=== PATIENT | male | born 1950 | race Caucasian/White ===

== ENCOUNTER → 2020-11-17 | Outpatient (CLI) | payer MEDICARE, OTHER | END | disposition home or self-care (01) | LOC: US 14:23 | PROVIDERS: ATTEND Family Medicine | DX: I70.8 Atherosclerosis of other arteries (principal); R59.0 Localized enlarged lymph nodes ==

== ENCOUNTER → 2024-01-19 | Outpatient (CLI) | payer MEDICARE, OTHER | END | disposition home or self-care (01) | LOC: WOUNDCARE 10:47 | PROVIDERS: ATTEND Nurse Practitioner Family | DX: L03.116 Cellulitis of left lower limb (principal); I83.028 Varicose veins of left lower extremity with ulcer other part of lower leg; E11.622 Type 2 diabetes mellitus with other skin ulcer; L97.822 Non-pressure chronic ulcer of other part of left lower leg with fat layer exposed; I83.891 Varicose veins of right lower extremity with other complications; I87.8 Other specified disorders of veins; J44.9 Chronic obstructive pulmonary disease, unspecified; I10 Essential (primary) hypertension; F17.210 Nicotine dependence, cigarettes, uncomplicated; Z79.02 Long term (current) use of antithrombotics/antiplatelets; Z79.899 Other long term (current) drug therapy ==

== ENCOUNTER → 2024-01-26 | Outpatient (CLI) | payer MEDICARE, OTHER | END | disposition home or self-care (01) | LOC: WOUNDCARE 02:36 | PROVIDERS: ATTEND Nurse Practitioner Family | DX: L03.116 Cellulitis of left lower limb (principal); E11.622 Type 2 diabetes mellitus with other skin ulcer; I83.018 Varicose veins of right lower extremity with ulcer other part of lower leg; L97.812 Non-pressure chronic ulcer of other part of right lower leg with fat layer exposed; I83.028 Varicose veins of left lower extremity with ulcer other part of lower leg; L97.822 Non-pressure chronic ulcer of other part of left lower leg with fat layer exposed; I87.8 Other specified disorders of veins; J44.9 Chronic obstructive pulmonary disease, unspecified; I10 Essential (primary) hypertension; F17.210 Nicotine dependence, cigarettes, uncomplicated; Z79.02 Long term (current) use of antithrombotics/antiplatelets; Z79.899 Other long term (current) drug therapy ==

== ENCOUNTER → 2024-02-02 | Outpatient (CLI) | payer MEDICARE, OTHER | END | disposition home or self-care (01) | LOC: WOUNDCARE 00:49 | PROVIDERS: ATTEND Nurse Practitioner Family | DX: L03.116 Cellulitis of left lower limb (principal); E11.622 Type 2 diabetes mellitus with other skin ulcer; I83.018 Varicose veins of right lower extremity with ulcer other part of lower leg; L97.812 Non-pressure chronic ulcer of other part of right lower leg with fat layer exposed; I83.028 Varicose veins of left lower extremity with ulcer other part of lower leg; L97.822 Non-pressure chronic ulcer of other part of left lower leg with fat layer exposed; I87.8 Other specified disorders of veins; J44.9 Chronic obstructive pulmonary disease, unspecified; I10 Essential (primary) hypertension; F17.210 Nicotine dependence, cigarettes, uncomplicated; Z79.02 Long term (current) use of antithrombotics/antiplatelets; Z79.899 Other long term (current) drug therapy ==

== ENCOUNTER → 2024-02-09 | Outpatient (CLI) | payer MEDICARE, OTHER | END | disposition home or self-care (01) | LOC: WOUNDCARE 00:50 | PROVIDERS: ATTEND Nurse Practitioner Family | DX: E11.622 Type 2 diabetes mellitus with other skin ulcer (principal); I83.018 Varicose veins of right lower extremity with ulcer other part of lower leg; L97.812 Non-pressure chronic ulcer of other part of right lower leg with fat layer exposed; I83.028 Varicose veins of left lower extremity with ulcer other part of lower leg; L97.822 Non-pressure chronic ulcer of other part of left lower leg with fat layer exposed; J44.9 Chronic obstructive pulmonary disease, unspecified; I10 Essential (primary) hypertension; L03.116 Cellulitis of left lower limb; F17.290 Nicotine dependence, other tobacco product, uncomplicated ==

== ENCOUNTER → 2024-02-17 | Outpatient (CLI) | payer MEDICARE, OTHER | END | disposition home or self-care (01) | LOC: WOUNDCARE 01:26 | PROVIDERS: ATTEND Nurse Practitioner Family | DX: E11.622 Type 2 diabetes mellitus with other skin ulcer (principal); I83.018 Varicose veins of right lower extremity with ulcer other part of lower leg; L97.812 Non-pressure chronic ulcer of other part of right lower leg with fat layer exposed; I83.892 Varicose veins of left lower extremity with other complications; L03.116 Cellulitis of left lower limb; I10 Essential (primary) hypertension; J44.9 Chronic obstructive pulmonary disease, unspecified; F17.290 Nicotine dependence, other tobacco product, uncomplicated ==

== ENCOUNTER → 2024-02-24 | Outpatient (CLI) | payer MEDICARE, OTHER | END | disposition home or self-care (01) | LOC: WOUNDCARE 01:47 | PROVIDERS: ATTEND Nurse Practitioner Family | DX: E11.622 Type 2 diabetes mellitus with other skin ulcer (principal); I83.018 Varicose veins of right lower extremity with ulcer other part of lower leg; L97.812 Non-pressure chronic ulcer of other part of right lower leg with fat layer exposed; I83.028 Varicose veins of left lower extremity with ulcer other part of lower leg; L97.822 Non-pressure chronic ulcer of other part of left lower leg with fat layer exposed; L03.116 Cellulitis of left lower limb; I87.8 Other specified disorders of veins; J44.9 Chronic obstructive pulmonary disease, unspecified; I10 Essential (primary) hypertension; F17.210 Nicotine dependence, cigarettes, uncomplicated; Z79.02 Long term (current) use of antithrombotics/antiplatelets; Z79.899 Other long term (current) drug therapy ==

== ENCOUNTER → 2024-05-24 | Outpatient (CLI) | payer MEDICARE, OTHER | END | disposition home or self-care (01) | LOC: CARD 05-06 12:00 | PROVIDERS: ATTEND Internal Medicine Cardiovascular Disease | DX: I08.1 Rheumatic disorders of both mitral and tricuspid valves (principal); R06.02 Shortness of breath ==

== ENCOUNTER 2024-06-30 20:21 | Inpatient (IN) | payer MEDICARE, OTHER ==
[~2024-06-30] VITALS: Ht 190.5 cm; Wt 89.4 kg
[2024-06-30 20:26] VITALS: BP 90/43
[2024-06-30 20:59] LABS: HEMATOCRIT 49.8 % (42.0-52.0); MEAN CELL VOLUME 103.3 fl (80.0-94.0); MEAN CORPUSCULAR HGB 33.4 pg (27.0-31.0); MEAN CORPUSCULAR HGB CONC 32.3 g/dl (33.0-37.0); MEAN PLATELET VOLUME 10.6 fl (9.6-12.3); PLATELET COUNT AUTOMATED 156 10*3/uL (130-400); RED BLOOD COUNT 4.82 10*6/uL (4.50-5.90); RED CELL DISTRI WIDTH 12.8 % (0-14.5); WHITE BLOOD COUNT 12.9 10*3/uL (4.8-10.8)
[2024-06-30 21:01] LABS: MANUAL DIFF REFLEX YES
[2024-06-30] MEDS ORDERED: JARDIANCE25 MG PO (21:05)
[2024-06-30] MEDS ORDERED: FUROSEMIDE40 MG PO (21:05)
[2024-06-30] MEDS ORDERED: FINASTERIDE5 M1 PO (21:05)
[2024-06-30] MEDS ORDERED: INCRUSE ELLI62.5 MCG INH (21:07)
[2024-06-30] MEDS ORDERED: LISINOPRIL10 M1 PO (21:08)
[2024-06-30] MEDS ORDERED: PIOGLITAZONE HC30 MG PO (21:08)
[2024-06-30] MEDS ORDERED: GLIPIZIDE10 M2 PO (21:10)
[2024-06-30] MEDS ORDERED: JANUMET 50-1,01 EACH PO (21:10)
[2024-06-30] MEDS ORDERED: Ceftriaxone Sodium 1 GM/10 ML SYR IV ONE (21:15)
[2024-06-30] MEDS ORDERED: Dexamethasone Sodium Phospha 4 MG/ML VIAL IV ONE (21:15)
[2024-06-30] MEDS ORDERED: AZITHROMYCIN 250 ML IV ONE (21:15)
[2024-06-30] MEDS ORDERED: SODIUM CHLORIDE 0.9% 1,000 ML IV SCH (21:20)
[2024-06-30 21:30] LABS: PLATELET SUFFICIENCY NORMAL (NORMAL); TOTAL CELLS COUNTED 100 #CELLS
[2024-06-30 21:31] LABS: BURR CELLS FEW; OVALOCYTES FEW
[2024-06-30 21:40] LABS: POTASSIUM 4.5 mmol/L (3.4-5.1)
[2024-06-30 21:41] LABS: TOTAL PROTEIN 7.1 gm/dL (6.0-8.0)
[2024-06-30 22:45] VITALS: BP 78/41
[2024-07-01] VITALS (70 sets, daily range): BP systolic 74–121; BP diastolic 38–78
[2024-07-01] MEDS ORDERED: Albuterol Sulf/Ipratropium 3 ML VIAL NEB SCH (00:55)
[2024-07-01] MEDS ORDERED: DEXTROSE 10 % IN WATER 250 ML IV PRN (01:05)
[2024-07-01 04:25] LABS: POTASSIUM 4.3 mmol/L (3.4-5.1); TOTAL PROTEIN 6.4 gm/dL (6.0-8.0)
[2024-07-01] MEDS ORDERED: SODIUM CHLORIDE 0.9% 1,000 ML IV ONE (04:30)
[2024-07-01 04:49] LABS: HEMATOCRIT 43.3 % (42.0-52.0); MEAN CELL VOLUME 100.5 fl (80.0-94.0); MEAN CORPUSCULAR HGB 32.9 pg (27.0-31.0); MEAN CORPUSCULAR HGB CONC 32.8 g/dl (33.0-37.0); MEAN PLATELET VOLUME 10.9 fl (9.6-12.3); PLATELET COUNT AUTOMATED 129 10*3/uL (130-400); RED BLOOD COUNT 4.31 10*6/uL (4.50-5.90); RED CELL DISTRI WIDTH 12.8 % (0-14.5); WHITE BLOOD COUNT 4.7 10*3/uL (4.8-10.8)
[2024-07-01 04:50] LABS: MANUAL DIFF REFLEX YES
[2024-07-01 05:01] LABS: ABG BASE EXCESS -3.9 mmol/L (-2.0-3.0); ABG O2 SATURATION 94.7 % (94.0-98.0); ARTERIAL BLOOD GAS PH 7.295 (7.350-7.450); ARTERIAL BLOOD GAS PO2 87.8 mmHg (83.0-108.0)
[2024-07-01 05:08] LABS: TOTAL CELLS COUNTED 100 #CELLS
[2024-07-01 05:09] LABS: PLATELET SUFFICIENCY LOW (NORMAL)
[2024-07-01] MEDS ORDERED: Pantoprazole Sodium 40 MG VIAL IV SCH (06:00)
[2024-07-01] MEDS ORDERED: NOREPINEPHRINE BITARTRATE/D5W 250 ML IV SCH (06:20)
[2024-07-01] MEDS ORDERED: Vancomycin Hydrochloride 2,000 MG in SODIUM CHLORIDE 0.9% 500 ML IV ONE (06:30)
[2024-07-01] MEDS ORDERED: NOREPINEPHRINE BITARTRATE/D5W 250 ML IV ONE (06:40)
[2024-07-01] MEDS ORDERED: INSULIN LISPRO 1 UNIT/0.01 ML SQ SCH (07:30)
[2024-07-01] MEDS ORDERED: Piperacillin Sodium/Tazobact 50 ML IV SCH (08:00)
[2024-07-01] MEDS ORDERED: VANCOMYCIN/WATER FOR INJ (PEG) 300 ML IV SCH (09:00)
[2024-07-01] MEDS ORDERED: FINASTERIDE 5 MG TAB PO SCH (10:00)
[2024-07-01] MEDS ORDERED: HEPARIN SODIUM 5,000 UNIT/ML VIAL SC SCH (10:00)
[2024-07-01] MEDS ORDERED: methylPREDNISolone sod succ 40 MG VIAL IV SCH ×2 (10:00→14:00)
[2024-07-01] MEDS ORDERED: ACETAMINOPHEN 325 MG TAB PO PRN (11:20)
[2024-07-01] MEDS ORDERED: ACETAMINOPHEN 650 MG SUPP R PRN (11:20)
[2024-07-01] MEDS ORDERED: SODIUM CHLORIDE 0.9% 1,000 ML IV SCH (12:40)
[2024-07-01] MEDS ORDERED: PLAVIX75 M1 PO (12:57)
[2024-07-01] MEDS ORDERED: Lactated Ringer's Solution 1,000 ML IV ONE (13:25)
[2024-07-01 14:36] LABS: BUN 36 mg/dl (9-23); CHLORIDE 103 mmol/L (98-107); POTASSIUM 4.4 mmol/L (3.4-5.1)
[2024-07-01 17:36] LABS: BILIRUBIN Negative (Negative); BLOOD Negative (Negative); CLARITY Clear (Clear); COLOR Yellow (Yellow); GLUCOSE 3+ (Negative); KETONE Negative (Negative); LEUKO ESTERASE Negative (Negative); NITRITE Negative (Negative); SPECIFIC GRAVITY 1.025 (1.001-1.030); UROBILINOGEN 0.2 E.U./dl (0.0-1.0)
[2024-07-01 17:45] LABS: BACTERIA 2+
[2024-07-01] MEDS ORDERED: AMMONIUM LACTATE 12% LOTION T SCH (22:00)
[2024-07-01] MEDS ORDERED: Ceftriaxone Sodium 1 GM in SYRINGE INFUSION 10 ML IV SCH (22:00)
[2024-07-01] MEDS ORDERED: AZITHROMYCIN 250 ML IV SCH (22:00)
[2024-07-02] VITALS (94 sets, daily range): BP systolic 76–139; BP diastolic 31–73
[2024-07-02 05:12] LABS: BUN 34 mg/dl (9-23); CHLORIDE 105 mmol/L (98-107)
[2024-07-02 06:08] LABS: HEMATOCRIT 41.6 % (42.0-52.0); MEAN CORPUSCULAR HGB 33.5 pg (27.0-31.0); MEAN CORPUSCULAR HGB CONC 33.2 g/dl (33.0-37.0); MEAN PLATELET VOLUME 11.5 fl (9.6-12.3); PLATELET COUNT AUTOMATED 122 10*3/uL (130-400); RED BLOOD COUNT 4.12 10*6/uL (4.50-5.90); RED CELL DISTRI WIDTH 13.1 % (0-14.5); WHITE BLOOD COUNT 19.8 10*3/uL (4.8-10.8)
[2024-07-02 06:11] LABS: MANUAL DIFF REFLEX YES
[2024-07-02 08:00] LABS: TOTAL CELLS COUNTED 100 #CELLS; VACUOLATION OF NEUTROPHILS SLIGHT
[2024-07-02 08:01] LABS: BURR CELLS FEW; DOHLE BODIES FEW; PLATELET SUFFICIENCY LOW (NORMAL)
[2024-07-02] MEDS ORDERED: MUPIROCIN 15 GM TUBE T SCH (10:00)
[2024-07-02] MEDS ORDERED: COREG3.125 MG PO (10:29)
[2024-07-02] MEDS ORDERED: CARVEDILOL 3.125 MG TAB PO SCH ×2 (10:40→22:00)
[2024-07-02] MEDS ORDERED: AZITHROMYCIN 250 ML IV SCH (12:00)
[2024-07-02] MEDS ORDERED: Lactated Ringer's Solution 1,000 ML IV ONE (14:05)
[2024-07-02 14:16] LABS: ABG O2 SATURATION 87.1 % (94.0-98.0); ARTERIAL BLOOD GAS PH 7.256 (7.350-7.450); ARTERIAL BLOOD GAS PO2 55.7 mmHg (83.0-108.0)
[2024-07-02 14:21] LABS: ABG BASE EXCESS -7.2 mmol/L (-2.0-3.0)
[2024-07-02] MEDS ORDERED: SODIUM CHLORIDE 0.9% 1,000 ML IV ONE (14:24)
[2024-07-02] MEDS ORDERED: PROPOFOL 100 ML IV ONE ×2 (15:26→18:51)
[2024-07-02] MEDS ORDERED: DEXMEDETOMIDINE IN 0.9 % NACL 100 ML IV SCH (15:55)
[2024-07-02] MEDS ORDERED: Metoprolol Tartrate 5 MG/5 ML VIAL IV ONE (17:10)
[2024-07-02] MEDS ORDERED: HEPARIN SODIUM 250 ML IV SCH (17:30)
[2024-07-02] MEDS ORDERED: fentaNYL CITRATE 100 MCG/2 ML VIAL IV PRN (17:35)
[2024-07-02] MEDS ORDERED: Chlorhexidine Gluconate 15 ML MOUTHWASH T SCH (18:00)
[2024-07-02 18:15] LABS: ABG O2 SATURATION 75.8 % (94.0-98.0)
[2024-07-02 18:18] LABS: ABG BASE EXCESS -11.2 mmol/L (-2.0-3.0)
[2024-07-02 18:19] LABS: ARTERIAL BLOOD GAS PH 7.067 (7.350-7.450)
[2024-07-02 18:20] LABS: ARTERIAL BLOOD GAS PO2 48.5 mmHg (83.0-108.0)
[2024-07-02] MEDS ORDERED: Amiodarone Hydrochloride 900 MG in DEXTROSE 5% 500 ML IV SCH (18:20)
[2024-07-02] MEDS ORDERED: SODIUM BICARBONATE 50 MEQ IV ONE (18:25)
[2024-07-02] MEDS ORDERED: SODIUM BICARBONATE 50 MEQ/50 ML VIAL IV ONE (18:35)
[2024-07-02] MEDS ORDERED: Amiodarone Hydrochloride 150 MG,IV 1 EA in DEXTROSE 5% 100 ML IV ONE (18:55)
[2024-07-02 21:30] LABS: ABG O2 SATURATION 80.2 % (94.0-98.0)
[2024-07-02 21:31] LABS: ABG BASE EXCESS -6.2 mmol/L (-2.0-3.0)
[2024-07-02 21:34] LABS: ARTERIAL BLOOD GAS PH 7.204 (7.350-7.450)
[2024-07-02 21:35] LABS: ARTERIAL BLOOD GAS PO2 48.3 mmHg (83.0-108.0)
[2024-07-02] MEDS ORDERED: fentaNYL CITRATE 1,000 MCG in SODIUM CHLORIDE 0.9% 230 ML IV SCH (23:45)
[2024-07-02] MEDS ORDERED: VASOPRESSIN 100 ML IV SCH (23:50)
[2024-07-03] VITALS (70 sets, daily range): BP systolic 75–119; BP diastolic 44–65
[2024-07-03] MEDS ORDERED: VASOPRESSIN 100 ML IV ONE (00:09)
[2024-07-03 00:52] LABS: ABG O2 SATURATION 69.4 % (94.0-98.0)
[2024-07-03 00:53] LABS: ABG BASE EXCESS -4.7 mmol/L (-2.0-3.0)
[2024-07-03 00:54] LABS: ARTERIAL BLOOD GAS PH 7.249 (7.350-7.450)
[2024-07-03 00:55] LABS: ARTERIAL BLOOD GAS PO2 37.7 mmHg (83.0-108.0)
[2024-07-03] MEDS ORDERED: FENTANYL CITRATE IV SCH (01:05)
[2024-07-03] MEDS ORDERED: SODIUM CHLORIDE 0.9% IV SCH (01:05)
[2024-07-03] MEDS ORDERED: fentaNYL CITRATE 100 MCG/2 ML VIAL ONE (01:05)
[2024-07-03 01:41] LABS: ABG BASE EXCESS -4.6 mmol/L (-2.0-3.0); ABG O2 SATURATION 97.8 % (94.0-98.0); ARTERIAL BLOOD GAS PH 7.265 (7.350-7.450); ARTERIAL BLOOD GAS PO2 113.9 mmHg (83.0-108.0)
[2024-07-03 04:12] LABS: HEMATOCRIT 38.1 % (42.0-52.0); MEAN CELL VOLUME 101.9 fl (80.0-94.0); MEAN CORPUSCULAR HGB 33.4 pg (27.0-31.0); MEAN CORPUSCULAR HGB CONC 32.8 g/dl (33.0-37.0); MEAN PLATELET VOLUME 11.3 fl (9.6-12.3); PLATELET COUNT AUTOMATED 109 10*3/uL (130-400); RED BLOOD COUNT 3.74 10*6/uL (4.50-5.90); RED CELL DISTRI WIDTH 13.1 % (0-14.5); WHITE BLOOD COUNT 17.8 10*3/uL (4.8-10.8)
[2024-07-03 04:48] LABS: MANUAL DIFF REFLEX YES
[2024-07-03 04:49] LABS: ALKALINE PHOSPHATASE 69 U/L (46-116); BUN 38 mg/dl (9-23); CHLORIDE 101 mmol/L (98-107); PLATELET SUFFICIENCY LOW (NORMAL); POTASSIUM 4.4 mmol/L (3.4-5.1); SGPT/ALT 47 U/L (5-49); TOTAL CELLS COUNTED 100 #CELLS; TOTAL PROTEIN 5.9 gm/dL (6.0-8.0)
[2024-07-03] MEDS ORDERED: Meropenem 1 GM in SODIUM CHLORIDE 0.9% 100 ML IV SCH ×2 (06:00→14:00)
[2024-07-03 07:56] LABS: ABG O2 SATURATION 98.3 % (94.0-98.0); ARTERIAL BLOOD GAS PH 7.325 (7.350-7.450); ARTERIAL BLOOD GAS PO2 117.9 mmHg (83.0-108.0)
[2024-07-03] MEDS ORDERED: SODIUM CHLORIDE 0.9% 100 ML BAG IV ONE ×2 (08:51→13:40)
[2024-07-03] MEDS ORDERED: IOHEXOL 350 MG/ML 100 ML VIAL IV ONE (13:40)
[2024-07-03] MEDS ORDERED: Vancomycin Hydrochloride 1,000 MG in SODIUM CHLORIDE 0.9% 250 ML IV SCH (16:00)
[2024-07-03] MEDS ORDERED: Metoclopramide Hydrochloride 10 MG/2 ML VIAL IV SCH (18:00)
[2024-07-04] VITALS (69 sets, daily range): BP systolic 81–118; BP diastolic 35–59
[2024-07-04 04:39] LABS: ALKALINE PHOSPHATASE 77 U/L (46-116); BUN 35 mg/dl (9-23); CHLORIDE 102 mmol/L (98-107); POTASSIUM 4.3 mmol/L (3.4-5.1); SGPT/ALT 42 U/L (5-49); TOTAL PROTEIN 5.8 gm/dL (6.0-8.0)
[2024-07-04 04:41] LABS: HEMATOCRIT 39.1 % (42.0-52.0); MEAN CELL VOLUME 100.3 fl (80.0-94.0); MEAN CORPUSCULAR HGB 33.3 pg (27.0-31.0); MEAN CORPUSCULAR HGB CONC 33.2 g/dl (33.0-37.0); MEAN PLATELET VOLUME 11.2 fl (9.6-12.3); NUCLEATED RED BLOOD CELL 0.1 % (0.0-0.0); PLATELET COUNT AUTOMATED 91 10*3/uL (130-400); RED CELL DISTRI WIDTH 13.4 % (0-14.5); WHITE BLOOD COUNT 15.5 10*3/uL (4.8-10.8)
[2024-07-04 04:42] LABS: MANUAL DIFF REFLEX YES
[2024-07-04 05:28] LABS: PLATELET SUFFICIENCY LOW (NORMAL); TOTAL CELLS COUNTED 100 #CELLS
[2024-07-04 05:29] LABS: ACANTHOCYTES FEW; BURR CELLS MODERATE
[2024-07-04] MEDS ORDERED: Ketamine Hydrochloride 500 MG/10 ML VIAL IV ONE (08:04)
[2024-07-04] MEDS ORDERED: Succinylcholine Chloride 200 MG/10 ML SYRINGE IV ONE (08:04)
[2024-07-04] MEDS ORDERED: Enoxaparin Sodium 40 MG/0.4 ML SYR SC SCH (10:00)
[2024-07-04] MEDS ORDERED: DEXTROSE 10 % IN WATER 250 ML IV PRN (21:10)
[2024-07-04] MEDS ORDERED: INSULIN LISPRO 1 UNIT/0.01 ML SQ SCH (22:00)
[2024-07-05] VITALS (61 sets, daily range): BP systolic 99–119; BP diastolic 43–62
[2024-07-05 03:45] LABS: HEMATOCRIT 38.7 % (42.0-52.0); MEAN CELL VOLUME 102.1 fl (80.0-94.0); MEAN CORPUSCULAR HGB CONC 32.3 g/dl (33.0-37.0); MEAN PLATELET VOLUME 11.4 fl (9.6-12.3); PLATELET COUNT AUTOMATED 104 10*3/uL (130-400); RED BLOOD COUNT 3.79 10*6/uL (4.50-5.90); RED CELL DISTRI WIDTH 13.3 % (0-14.5); WHITE BLOOD COUNT 8.6 10*3/uL (4.8-10.8)
[2024-07-05 03:46] LABS: MANUAL DIFF REFLEX YES
[2024-07-05 04:02] LABS: BUN 38 mg/dl (9-23); CHLORIDE 104 mmol/L (98-107); POTASSIUM 4.4 mmol/L (3.4-5.1)
[2024-07-05 04:05] LABS: BURR CELLS MODERATE; PLATELET SUFFICIENCY LOW (NORMAL); POLYCHROMASIA SLIGHT; TOTAL CELLS COUNTED 100 #CELLS
[2024-07-05 07:51] LABS: ARTERIAL BLOOD GAS PH 7.34 (7.350-7.450)
[2024-07-05 07:52] LABS: ABG BASE EXCESS -5.2 mmol/L (-2.0-3.0)
[2024-07-05] MEDS ORDERED: methylPREDNISolone sod succ 40 MG VIAL IV SCH (22:00)
[2024-07-06] VITALS (8 sets, daily range): BP systolic 109–118; BP diastolic 48–59
[2024-07-06] MEDS ORDERED: FENTANYL CITRATE IV SCH (05:10)
[2024-07-06] MEDS ORDERED: SODIUM CHLORIDE 0.9% IV SCH (05:10)
[2024-07-06 05:25] LABS: BUN 37 mg/dl (9-23); CHLORIDE 105 mmol/L (98-107); POTASSIUM 5.1 mmol/L (3.4-5.1)
[2024-07-06 06:13] LABS: BASO % 0.2 % (0.0-1.0); HEMATOCRIT 38.5 % (42.0-52.0); MEAN CELL VOLUME 100.5 fl (80.0-94.0); MEAN CORPUSCULAR HGB 32.9 pg (27.0-31.0); MEAN CORPUSCULAR HGB CONC 32.7 g/dl (33.0-37.0); MEAN PLATELET VOLUME 11.5 fl (9.6-12.3); MONO # 0.5 10*3/uL (0.1-1.0); MONO % 8.1 % (3.0-9.0); NEUT # 5.2 10*3/uL (2.3-7.9); NEUT % 85.3 % (47.0-73.0); PLATELET COUNT AUTOMATED 110 10*3/uL (130-400); RED BLOOD COUNT 3.83 10*6/uL (4.50-5.90); RED CELL DISTRI WIDTH 13.2 % (0-14.5); WHITE BLOOD COUNT 6.1 10*3/uL (4.8-10.8)
[2024-07-06 08:05] LABS: ABG BASE EXCESS 1.5 mmol/L (-2.0-3.0); ABG O2 SATURATION 93.4 % (94.0-98.0); ARTERIAL BLOOD GAS PH 7.435 (7.350-7.450)
[2024-07-07] VITALS: BP 115/64
[2024-07-07 04:00] VITALS: BP 117/63
[2024-07-07 05:29] LABS: BUN 30 mg/dl (9-23); CHLORIDE 103 mmol/L (98-107); POTASSIUM 5.6 mmol/L (3.4-5.1)
[2024-07-07 06:50] LABS: HEMATOCRIT 42.5 % (42.0-52.0); MEAN CELL VOLUME 102.7 fl (80.0-94.0); MEAN CORPUSCULAR HGB 32.6 pg (27.0-31.0); MEAN CORPUSCULAR HGB CONC 31.8 g/dl (33.0-37.0); MEAN PLATELET VOLUME 11.9 fl (9.6-12.3); PLATELET COUNT AUTOMATED 137 10*3/uL (130-400); RED BLOOD COUNT 4.14 10*6/uL (4.50-5.90); RED CELL DISTRI WIDTH 13.2 % (0-14.5); WHITE BLOOD COUNT 10.5 10*3/uL (4.8-10.8)
[2024-07-07 06:56] LABS: MANUAL DIFF REFLEX YES
[2024-07-07 07:21] LABS: TOTAL CELLS COUNTED 100 #CELLS
[2024-07-07 07:22] LABS: BURR CELLS FEW; OVALOCYTES FEW; PLATELET SUFFICIENCY NORMAL (NORMAL); POLYCHROMASIA SLIGHT; TOXIC GRANULATION SLIGHT
[2024-07-07 08:00] VITALS: BP 126/64
[2024-07-07 12:00] VITALS: BP 112/61
[2024-07-07 16:00] VITALS: BP 123/66
[2024-07-07] MEDS ORDERED: MED. FROM HOME 1 EACH EA INH SCH (17:00)
[2024-07-07 20:00] VITALS: BP 107/53
[2024-07-08] VITALS: BP 116/59
[2024-07-08 04:00] VITALS: BP 124/63
[2024-07-08 05:08] LABS: BUN 22 mg/dl (9-23); CHLORIDE 101 mmol/L (98-107); POTASSIUM 5.4 mmol/L (3.4-5.1)
[2024-07-08 06:11] LABS: HEMATOCRIT 43.7 % (42.0-52.0); MEAN CELL VOLUME 103.6 fl (80.0-94.0); MEAN CORPUSCULAR HGB 32.9 pg (27.0-31.0); MEAN CORPUSCULAR HGB CONC 31.8 g/dl (33.0-37.0); MEAN PLATELET VOLUME 11.6 fl (9.6-12.3); PLATELET COUNT AUTOMATED 153 10*3/uL (130-400); RED BLOOD COUNT 4.22 10*6/uL (4.50-5.90)
[2024-07-08 06:20] LABS: MANUAL DIFF REFLEX YES
[2024-07-08 07:13] LABS: PLATELET SUFFICIENCY NORMAL (NORMAL); TOTAL CELLS COUNTED 100 #CELLS
[2024-07-08 08:00] VITALS: BP 119/57
[2024-07-08 12:00] VITALS: BP 115/50
[2024-07-08 16:00] VITALS: BP 112/47
[2024-07-08 20:00] VITALS: BP 125/66
[2024-07-09] VITALS: BP 110/55
[2024-07-09 03:52] VITALS: BP 106/50
[2024-07-09 05:29] LABS: BUN 21 mg/dl (9-23); CHLORIDE 98 mmol/L (98-107); POTASSIUM 5.2 mmol/L (3.4-5.1)
[2024-07-09 06:00] LABS: HEMATOCRIT 43.2 % (42.0-52.0); MEAN CELL VOLUME 101.2 fl (80.0-94.0); MEAN CORPUSCULAR HGB 32.8 pg (27.0-31.0); MEAN CORPUSCULAR HGB CONC 32.4 g/dl (33.0-37.0); MEAN PLATELET VOLUME 11.6 fl (9.6-12.3); PLATELET COUNT AUTOMATED 180 10*3/uL (130-400); RED BLOOD COUNT 4.27 10*6/uL (4.50-5.90); RED CELL DISTRI WIDTH 12.9 % (0-14.5); WHITE BLOOD COUNT 12.9 10*3/uL (4.8-10.8)
[2024-07-09 06:26] LABS: MANUAL DIFF REFLEX YES
[2024-07-09 07:41] LABS: PLATELET SUFFICIENCY NORMAL (NORMAL); TOTAL CELLS COUNTED 100 #CELLS
[2024-07-09 08:00] VITALS: BP 102/43
[2024-07-09] MEDS ORDERED: Clopidogrel Hydrogen Sulfate 75 MG TAB PO SCH (10:00)
[2024-07-09] MEDS ORDERED: EMPAGLIFLOZIN 25 MG TABLET PO SCH (10:00)
[2024-07-09] MEDS ORDERED: LISINOPRIL 10 MG TAB PO SCH (10:00)
[2024-07-09 12:00] VITALS: BP 116/56
[2024-07-09] MEDS ORDERED: Meropenem 50 ML IV SCH (14:00)
[2024-07-09 16:00] VITALS: BP 102/51
[2024-07-09 20:00] VITALS: BP 108/48
[2024-07-10] VITALS: BP 108/57
[2024-07-10 08:00] VITALS: BP 119/51
[2024-07-10 12:00] VITALS: BP 106/52
[2024-07-10] MEDS ORDERED: PREDNISONE10 MG PO (13:54)
== END 2024-07-10 15:25 | DRG 871 ==
LOC: ED 20:21 → ICCU 22:30 → EDHOLD 22:30 → ICCU 07-01 08:46 → 4E 07-09 07:38
PROVIDERS: Internal Medicine; Internal Medicine Sleep Medicine; Student in an Organized Health Care Education/Training Program; Surgery; ADMIT Internal Medicine; ATTEND Internal Medicine
PROC: 5A09357 Assistance with Respiratory Ventilation, Less than 24 Consecutive Hours, Continuous Positive Airway Pressure (ICD-10-PCS; principal; 2024-06-30)
PROC: 5A09357 Assistance with Respiratory Ventilation, Less than 24 Consecutive Hours, Continuous Positive Airway Pressure (ICD-10-PCS; 2024-07-01)
PROC: 02HV33Z Insertion of Infusion Device into Superior Vena Cava, Percutaneous Approach (ICD-10-PCS; 2024-07-01)
PROC: B548ZZA Ultrasonography of Superior Vena Cava, Guidance (ICD-10-PCS; 2024-07-01)
PROC: 02HV33Z Insertion of Infusion Device into Superior Vena Cava, Percutaneous Approach (ICD-10-PCS; 2024-07-01)
PROC: B548ZZA Ultrasonography of Superior Vena Cava, Guidance (ICD-10-PCS; 2024-07-01)
PROC: 5A09357 Assistance with Respiratory Ventilation, Less than 24 Consecutive Hours, Continuous Positive Airway Pressure (ICD-10-PCS; 2024-07-02)
PROC: 0BH17EZ Insertion of Endotracheal Airway into Trachea, Via Natural or Artificial Opening (ICD-10-PCS; 2024-07-02)
PROC: 5A1945Z Respiratory Ventilation, 24-96 Consecutive Hours (ICD-10-PCS; 2024-07-02)
PROC: 02HV33Z Insertion of Infusion Device into Superior Vena Cava, Percutaneous Approach (ICD-10-PCS; 2024-07-02)
PROC: B548ZZA Ultrasonography of Superior Vena Cava, Guidance (ICD-10-PCS; 2024-07-02)
PROC: 5A0955A Assistance with Respiratory Ventilation, Greater than 96 Consecutive Hours, High Flow/Velocity Cannula (ICD-10-PCS; 2024-07-06)
DX: A41.50 Gram-negative sepsis, unspecified (principal); J15.69 Pneumonia due to other Gram-negative bacteria; N17.0 Acute kidney failure with tubular necrosis; R65.21 Severe sepsis with septic shock; J96.21 Acute and chronic respiratory failure with hypoxia; J96.22 Acute and chronic respiratory failure with hypercapnia; J44.1 Chronic obstructive pulmonary disease with (acute) exacerbation; E87.1 Hypo-osmolality and hyponatremia; J44.0 Chronic obstructive pulmonary disease with (acute) lower respiratory infection; K92.1 Melena; I48.92 Unspecified atrial flutter; I25.10 Atherosclerotic heart disease of native coronary artery without angina pectoris; N18.9 Chronic kidney disease, unspecified; E11.22 Type 2 diabetes mellitus with diabetic chronic kidney disease; I12.9 Hypertensive chronic kidney disease with stage 1 through stage 4 chronic kidney disease, or unspecified chronic kidney disease; I48.91 Unspecified atrial fibrillation; Z20.822 Contact with and (suspected) exposure to COVID-19; E87.8 Other disorders of electrolyte and fluid balance, not elsewhere classified; R74.01 Elevation of levels of liver transaminase levels; E11.65 Type 2 diabetes mellitus with hyperglycemia; E11.51 Type 2 diabetes mellitus with diabetic peripheral angiopathy without gangrene; F17.210 Nicotine dependence, cigarettes, uncomplicated; S30.0XXA Contusion of lower back and pelvis, initial encounter; S81.802A Unspecified open wound, left lower leg, initial encounter; S81.801A Unspecified open wound, right lower leg, initial encounter; Z82.5 Family history of asthma and other chronic lower respiratory diseases; Z79.899 Other long term (current) drug therapy; Z79.01 Long term (current) use of anticoagulants; Z79.2 Long term (current) use of antibiotics; Z80.1 Family history of malignant neoplasm of trachea, bronchus and lung; X58.XXXA Exposure to other specified factors, initial encounter; Y93.89 Activity, other specified; Y92.89 Other specified places as the place of occurrence of the external cause; Y99.8 Other external cause status

== ENCOUNTER → 2025-06-13 | Outpatient (CLI) | payer MEDICARE, OTHER ==
[~2025-06-13] MED LIST: COREG3.125 MG PO; FINASTERIDE5 M1 PO; FUROSEMIDE40 MG PO; GLIPIZIDE10 M2 PO; INCRUSE ELLI62.5 MCG INH; JANUMET 50-1,01 EACH PO; JARDIANCE25 MG PO; LISINOPRIL10 M1 PO; PIOGLITAZONE HC30 MG PO; PLAVIX75 M1 PO; PREDNISONE10 MG PO
== END | disposition home or self-care (01) ==
LOC: CT 09:54
PROVIDERS: ATTEND Internal Medicine Critical Care Medicine
DX: J44.9 Chronic obstructive pulmonary disease, unspecified (principal); J30.89 Other allergic rhinitis; J96.11 Chronic respiratory failure with hypoxia; R91.1 Solitary pulmonary nodule; I25.10 Atherosclerotic heart disease of native coronary artery without angina pectoris; Z87.891 Personal history of nicotine dependence; Z68.25 Body mass index [BMI] 25.0-25.9, adult; Z99.81 Dependence on supplemental oxygen